=== PATIENT | male | born 1960 | race African-American/Black ===

== ENCOUNTER 2017-01-14 18:47 | Emergency (ER) | payer OTHER ==
[~2017-01-14] VITALS: Ht 175.3 cm; Wt 79.4 kg
--- NOTE | ~2017-01-14 | CR72 ---
[facility] A Service of [facility] RADIOLOGY TEXT RESULTS PATIENT: TARAS GÓMEZ LOCATION: [facility] : 64 UNIT #: [id number] AGE: [address]: Burton Barry MD SEX: M ORDER DR: [id number] [facility]. [place], [place] [address] [id number] MR#: [id number] Acc #: [id number] NAME: TARAS GÓMEZ : 1960 SEX: M STUDY DATE/TIME: 01/14/2017 21:26 UNIT: [facility] ROOM: STUDY DESCRIPTION: CR Chest Single View Portable Attending Physician: Burton Barry M.D. Ordering Physician: Burton Barry M.D. Primary Care Physician: No Primary Care Physician MEDICAL IMAGING REPORT This report is preliminary unless electronic signature is present EXAM AP radiograph of the chest, 01/14/2017. HISTORY Chest pain this a.m. and 1600 off and on. Prior history of asthma. TECHNIQUE AP radiograph of the chest is presented. COMPARISON 12/16/2005 FINDINGS Heart and mediastinum normal in size and contour. Lungs hyperinflated consistent with given diagnosis of asthma. There is relative lucency in the upper lung zones as well. Correlate with any clinical risk factors for emphysema. There is no clear indication of acute infectious or inflammatory disease. No pleural effusion or pneumothorax and no suspicious nodule. The bony structures are unremarkable. Dictated by... Terrance Lambert M.D. THIS IS AN ELECTRONICALLY VERIFIED REPORT Terrance Lambert M.D. at 01/15/2017 7:55 PM COLLETTE/jammie TD: 01/15/2017 00:51 JOB #: [id number] [facility] A Service [facility] RADIOLOGY TEXT RESULTS PATIENT: TARAS GÓMEZ LOCATION: [facility] : 64 UNIT #: [id number] AGE: [address]: Burton Barry MD SEX: M ORDER DR: MEDICAL IMAGING REPORT Page 1 of 1 COPY
--- NOTE | ~2017-01-14 | EKG ---
PATIENT: TARAS GÓMEZ UNIT #: [id number] Ventricular Rate: 74 BPM Atrial Rate: 74 BPM P-R Interval: 144 ms QRS Duration: 90 ms Q-T Interval: 404 ms QTC Calculation(Bezet): 448 ms P [place]: 85 degrees Calculated R [place]: 64 degrees Calculated T [place]: 61 degrees Diagnosis Line: Normal sinus rhythm Diagnosis Line: Voltage criteria for left ventricular hypertrophy Diagnosis Line: Abnormal ECG Diagnosis Line: No previous ECGs available Diagnosis Line: Confirmed by HAIDER CALVERT MD ([id number]) on 01/15/2017 Diagnosis Line: 7:17:53 PM INTERPRETING MD: ENRIKE URIARTE
[~2017-01-14 18:47] MED LIST: NO MEDICATIONS
[2017-01-14 19:11] LABS: BASOPHIL% 0.8 % (0-2.5); EOSINOPHIL# 0.3 X10e3 (0-0.7); EOSINOPHIL% 5.8 % (0.0-7.0); HEMATOCRIT 40.5 % (38.0-50.0); HEMOGLOBIN 13.5 gm/dL (13.0-16.0); LYMPHOCYTE# 0.9 X10e3 (1.0-3.5); LYMPHOCYTE% 16.1 % (17.0-45.0); MEAN CELL VOLUME 89.4 FL (83-96); MEAN CORPUSCULAR HEMOGLOBIN 29.9 PG (28-34); MEAN CORPUSCULAR HGB CONC 33.4 g/dL (30-36); MEAN PLATELET VOLUME 6.4 FL (6.5-11.5); MONOCYTE# 0.4 X10e3 (0-1.0); MONOCYTE% 7.2 % (3.0-12.0); NEUTROPHIL# 3.9 X10e3 (1.5-7.1); NEUTROPHIL% 70.1 % (40-75); PLATELET COUNT 367 X10e3 (140-420); RED BLOOD COUNT 4.53 X10e (3.90-5.60); RED CELL DISTRIBUTION WIDTH 14.7 % (11.0-15.5); WHITE BLOOD COUNT 5.5 X10e3 (4.0-10.5)
[2017-01-14 19:13] LABS: DIFF IND NO
[2017-01-14 19:41] LABS: ALBUMIN SERUM 3.9 g/dL (3.5-5.0); BILIRUBIN, DIRECT 0.1 mg/dL (0.0-0.2); BILIRUBIN,INDIRECT 0.4 mg/dL (0.0-0.9); BILIRUBIN,TOTAL 0.5 mg/dL (0.2-2.0); BUN/CREATININE RATIO 13.84; CALCIUM SERUM 9.1 mg/dL (8.4-10.2); CREATININE SERUM 1.3 mg/dL (0.6-1.4); GLOM FILT RATE Estimated 71.7 mL/min (>60); PROTEIN TOTAL SERUM 7.3 g/dL (6.0-8.3)
[2017-01-14 21:12] LABS: POC - CKMB 1.7 ng/mL (0.0-7.9); POC - TROPONIN <0.05 ng/mL (<=0.05)
[2017-01-14 21:20] LABS: POC - CKMB 1.9 ng/mL (0.0-7.9); POC - TROPONIN <0.05 ng/mL (<=0.05)
== END 2017-01-14 22:10 | disposition home or self-care (01) ==
LOC: CED 18:47
PROVIDERS: Emergency Medicine
DX: R07.89 Other chest pain (principal); Z88.0 Allergy status to penicillin
CPT/HCPCS: 36415; 71010; 80048; 80076; 82553; 84484; 85025; 93005; 96374; 99285; J2930